=== PATIENT | female | born 1950 | race Caucasian/White ===

== ENCOUNTER → 2024-12-01 | Outpatient (CLI) | payer MEDICARE, MEDICAID, SELFPAY ==
--- NOTE | 2024-12-01 13:00 | XR_ITS ---
Examination: Screening digital mammography, bilateral Computer aided detection 3-D breast Tomosynthesis, bilateral Date and time of exam: December 01, 2024 1255 hours No priors Indication: Screening, family history, sister breast cancer Technique: Nonmagnified MLO, CC views of the breasts to been obtained, reconstructed from 3-D Tomosynthesis images. R2 computer aided detection program utilized for evaluation of suspicious masses and/or abnormal calcifications. 3-D Tomosynthesis images obtained. Findings: Scattered areas of fibroglandular density 4 mm nodule retroareolar region left breast 11 mm focal asymmetry indistinct margins upper outer left breast Probable right breast intramammary lymph node Impression: BI-RADS Category 0: Incomplete: Need additional imaging evaluation Recommend follow-up spot tomographic views of 11 mm focal asymmetry indistinct margins upper outer left breast as well as left breast. Recommend follow-up spot tomographic views retroareolar region left breast to assess 4 mm nodule Recommend bilateral breast sonography follow-up
== END | disposition home or self-care (01) ==
PROVIDERS: PCP Internal Medicine; Referring Provider Internal Medicine; Visit Provider Internal Medicine
DX: Z12.31 Encounter for screening mammogram for malignant neoplasm of breast (principal); N64.89 Other specified disorders of breast; N63.42 Unspecified lump in left breast, subareolar
CPT/HCPCS: 77063; 77067

== ENCOUNTER → 2025-01-13 | Outpatient (CLI) | payer MEDICARE, MEDICAID, SELFPAY ==
--- NOTE | 2025-01-13 10:00 | XR_ITS ---
Examination: Breast ultrasound complete, bilateral Date and time of exam: January 13, 2025 at 10:12 AM INDICATIONS: Mammogram December 01, 2024 4 mm nodule retroareolar region left breast, 11 mm focal asymmetry upper outer left breast Technique: Real-time grayscale ultrasonographic imaging bilateral breasts, including all 4 quadrants as well as nipple retroareolar and axillary regions. Findings: Sonographic images right breast 11:00 hyperechoic nodule 9 x 7 mm Sonographic images left breast No cystic or solid mass IMPRESSION: BI-RADS Category 3: Probably benign findings One additional 6 month right breast sonogram follow-up is needed to document stability of 11:00 nodule described above.
== END | disposition home or self-care (01) ==
PROVIDERS: PCP Internal Medicine
DX: N63.11 Unspecified lump in the right breast, upper outer quadrant (principal)
CPT/HCPCS: 76641

== ENCOUNTER → 2025-02-02 | Outpatient (CLI) | payer MEDICARE, MEDICAID, SELFPAY ==
--- NOTE | 2025-02-02 09:45 | XR_ITS ---
Examination: Diagnostic digital mammography, unilateral, left Computer aided detection 3-D breast Tomosynthesis, unilateral Date and time of exam: February 02, 2025 0938 hours INDICATIONS: Mammogram December 01, 2024 11 mm focal asymmetry upper outer left breast and 4 mm nodule retroareolar region left breast Technique: Nonmagnified MLO, CC views of the left breast have been obtained, reconstructed from 3-D Tomosynthesis images. R2 computer aided detection program utilized for evaluation of suspicious masses and/or abnormal calcifications. 3-D Tomosynthesis images obtained. Findings: Scattered areas of fibroglandular density No suspicious masses are confirmed left breast on the spot compression views Impression: BI-RADS category 2: Benign findings Return to yearly follow-up mammography
== END | disposition home or self-care (01) ==
LOC: CDIM 09:27
PROVIDERS: Referring Provider Internal Medicine; Visit Provider Internal Medicine
DX: R92.322 Mammographic fibroglandular density, left breast (principal)
CPT/HCPCS: 77061; 77065; G0279